=== PATIENT | female | born 1940 | race Caucasian/White ===

== ENCOUNTER 2021-05-02 00:07 | Emergency (ER) | payer OTHER ==
--- OUTSIDE RECORDS SUMMARY | 2021-05-02 00:12 | XMS REPORT | Continuity of Care Document ---
:1940 Author Organization [facility] t Address [address] [place] [address] Care Team Providers Name Role Phone Fransisco Brennan Attending Clinician Unavailable Efren Liu MD Attending Clinician 1, Lab Attending Clinician Unavailable Doctor Unassigned, Name Attending Clinician Unavailable Physician, Primary Care Admitting Clinician Unavailable Efren Liu MD Admitting Clinician Payers Payer Name Policy Type Policy Number Effective Date Expiration Date S ource Problems Condition Condition Condition Status Onset Resolution Last Treating Co mments Source Name Details Category Date Date Treatment Clinician Date Post-op Post-op Disease Active 2019-0 Univers pain pain 8-14 ity of 00:00: [address] Essential Essential Disease Active 2019 Uni vers hypertensi hypertensi 7-10 it y of on on 00:00: [address] HLD HLD Disease Active 2019-0 Univers (hyperlipi (hyperlipi 7-10 it y of demia) demia) 00:00: [address] Arthritis Arthritis Disease Active 2019-0 Uni vers of knee of knee 7-10 ity of 00:00: [address] PVC PVC Disease Active 2019-0 Univers (premature (premature 7-10 it y of ventric[place] ventric[place] 00 Medical contractio contractio Br anch n) n) Allergies, Adverse Reactions, Alerts Allergy Allergy Status Severity Reaction(s) Onset Inactive Treating Comm ents Source Name Type Date Date Clinician No Known DA Active U 2020-0 [facility]- [place] [facility] No Known DA Active U 2020-0 [facility]ie 2 [place] [facility] No Known DA Active U 2020-0 [facility] Allergie 03-20 [place] 00[facility] No Known DA Active U 2020-0 [facility] Allergie 03-20 [place] 00:[facility] Social History Social Habit Start Date Stop Date Quantity Comments Source Alcohol intake [facility] Medical Branch History [facility] o [facility] Alcohol Binge Medical Bra [facility] Sex Assigned At [facility] Medical Branch History [facility] 2018-08-29 2018-08-29 2 [place] [facility] Alcohol Frequency 00:00:00 00:00:00 Medical Branch History [facility] 2018-08-29 2018-08-29 1 [place] [facility] Alcohol Std Drinks 00:00:00 00:00:00 Medica l Branch Smoking Status Start Date Stop Date Source Never smoker [facility] Medical Branch Medications Ordered Filled Start Stop Current Ordering Indication Dosage Frequency Signature Comments Components Source Medication Medication Date Date Medication? Clinician (SIG) Name Name anastrozole 2019- No 1mg Take 1 mg Univers 1 mg tablet 10-11- by mouth ity of 17:38: 00:00 daily [place] 53 :00 Medical Branch carvedilol 2019- No 6.25mg Take 6.25 Univers 6.25 mg 10-11-21 mg by ity of tablet 17:38: 00:00 mouth 2 [place] 53 :00 (two) Medical times Branch daily with meals. pravastatin 2019- No 40mg Take 40 mg Univers 40 mg 10-11-21 by mouth ity of tablet 17:38: 00:00 at [place] 53 :00 bedtime. Medical Branch cholecalcif 2019- No 3000U Take 3,000 Univers mali, 10-11 08-21 Units by ity of vitamin D3, 17:38: 00:00 [place] (VITAMIN 53 :00 daily. Medical D3) 1,000 Branch unit tablet denosumab 2019- No 60mg inject 60 Un jamir 60 mg/mL 8-21 08-21 mg under ity of injection 17:38: 00:00 the skin [place] 53 :00 once now. Medical Indication Branch s: Once every 6 months calcium 2018- 2019- No 1{tbl} Take 1 Unive rs carbonate 10-11- tablet by ity of (CALCIUM 17:38: 00:00 mouth 2 [place] 500 ORAL) 53 :00 (two) Medical times Branch daily. docusate 2019- No 100mg Take 100 Uni vers (STOOL 10-11- mg by ity of SOFTENER) 17:38: 00:00 mouth [place] 100 mg 53 :00 daily. Medical capsule Branch multivit,tx 2019- No 1{tbl} Take 1 U nivers with 10-11- tablet by ity of iron,minera 17:38: 00:00 mouth [place] :00 daily. Medical (COMPLETE Branch MULTIVITAMI N ORAL) ascorbic 2019- No 500mg Take 500 Uni vers acid, 10-11- mg by ity of vitamin C, 17:38: 00:00 mouth [place] (VITAMIN C) 53 :00 daily. Medica l 500 mg Branch tablet omega 2019- No 1{capsu Take 1 Univer s 3-dha-epa-f 10-11- le} capsule by i ty of nida oil 17:38: 00:00 mouth [place] (FISH OIL) 53 :00 daily. Medical 100-160-1,0 Branch 00 mg Cap aspirin 81 2019- No 81mg Take 81 mg Univers mg EC 10-11- by mouth ity of tablet 17:38: 00:00 daily. [place] 53 :00 Medical Branch Cranberry 2018- 2019- No 4{capsu Take 4 Un jamir 400 mg Cap 10-11- le} capsules ity of 17:38: 00:00 by mouth 2 [place] 53 :00 (two) Medical times Branch daily. levothyroxi 2018- 2019- No 25ug Take 25 Un jamir ne 25 mcg 10-11- mcg by ity of tablet 17:38: 00:00 mouth [place] 53 :00 every Medical morning. Branch carvedilol 2019- Yes 3.125mg 3.125 mg, Univers (COREG) 8-17 Oral, BID ity of tablet 22:00: MEALS, [place] 3.125 mg 00 First dose Medic al on Sat Branch 10/07/18 at 1700, Until Discontinu ed, Routine benzocaine- 2019-0 Yes 1{lozen 1 Lozenge, Univers menthol 8-16 ge} Oral, ity of (CEPACOL 08:43: Q4HPRN, [place] SORE THROAT 22 Starting Medi jono (ALEC-MEN)) Fri Branch lozenge 1 10/06/18 at Lozenge 0343, Until Discontinu ed, Routine, Sore throat pravastatin 2019-0 Yes 40mg 40 mg, Univ ers (PRAVACHOL) 8-16 Oral, QHS, it y of tablet 40 02:00: [place] mg 00 on [place] Medical 10/05/18 at Branch 2100, Until Discontinu ed, Routine NaCl 0.9% 2018-0 2019- No 500mL at 999 [facility] ers (NS) bolus 8-15 08-15 mL/hr, 500 it y of infusion 20:00: 18:57 mL, IV [place] 500 mL 00 :00 Infusion, Medical ONCE, 1 Branch dose, [facility] 10/05/18 at 1500, STAT NaCl 0.9% 20190 2019- No 500mL at 999 Univ ers (NS) bolus 8-15 08-15 mL/hr, 500 it y of infusion 17:30: 16:27 mL, IV [place] 500 mL 00 :00 Infusion, Medical ONCE, 1 Branch dose, [facility] 10/05/18 at 1230, STAT HYDROcodone 2019-0 Yes 1{tbl} 1 tablet, Univers -acetaminop 8-15 Oral, ity of hen (NORCO) 17:25: Q4HPRN, [place] 10-325 mg 58 Starting Medica l tablet 1 [place] Branch tablet 10/05/18 at 1225, Until Discontinu ed, Routine, Pain (scale 7-10) HYDROcodone 2019-0 Yes 1{tbl} 1 tablet, Univers -acetaminop 8-15 Oral, ity of hen (NORCO 17:25: Q6HPRN, [place] 5) 5-325 mg 53 Starting Medi jono tablet 1 [place] Branch tablet 10/05/18 at 1225, Until Discontinu ed, Routine, Pain (scale 4-6) anastrozole 2019-0 Yes 1mg 1 mg, Unive rs (ARIMIDEX) 8-15 Oral, ity of tablet 1 mg 14:00: DAILY, [place] 00 First dose Medical on [facility] Branch 10/05/18 at 0900, Until Discontinu ed, Routine levothyroxi 2019-0 Yes 25ug 25 mcg, Uni vers ne 8-15 Oral, ity of (SYNTHROID) 11:00: QAM-0600, [place] tablet 25 00 First dose Medi jono mcg on [facility] Branch 10/05/18 at 0600, Until Discontinu ed, Routine docusate 2019-0 Yes 100mg 100 mg, Unive rs (COLACE) 8-15 Oral, ity of capsule 100 01:00: Q12H, [place] mg 00 First dose Medical on Tue Branch 10/04/18 at 2000, Until Discontinu ed, Routine enoxaparin 2018-0 Yes 30mg 30 mg, Unive rs (LOVENOX) 8-15 Subcutaneo ity of injection 01:00: us, Q12H, [place] 30 mg 00 First dose Medical on Tue Branch 10/04/18 at 2000, Until Discontinu ed, Routine morpHINE 30 0 2019- No Unive rs mg/30 mL 10-04 08-17 ity of (fixed 23:15: 16:05 [place] dose) 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 :01 Medical injection Branch naloxone 2018-0 Yes .4mg 0.4 mg, Univer s (NARCAN) 8-14 Slow IV ity of injection 23:05: Push, [place] 0.4 mg 59 SEE-INSTRU Medical CTIONS, Branch Starting Tue10/04/18 at 1805, Until Discontinu ed, Routine FENTanyl PF 2019-0 Yes 25ug 25 mcg, Uni vers (SUBLIMAZE 8-14 Slow IV ity of (PF)) 20:33: Push, [place] injection 46 Q5MIN PRN, Medi jono 25 mcg 4 doses, Branch Starting Tue10/04/18 at 1533, Until Discontinu ed, Routine, Pain (scale 7-10), PACU ondansetron 2018-0 Yes 4mg 4 mg, Slow Univers (ZOFRAN 8-14 IV Push, ity of (PF)) 20:33: PRN, 1 [place] injection 4 46 dose, Medical mg Starting Branch Tue10/04/18 at 1533, Until Discontinu ed, Routine, Nausea and Vomiting (N/V), PACU diphenhydrA 2019-0 Yes 25mg 25 mg, Univ ers MINE 8 Oral, ity of (BENADRYL) 20:20: Q4HPRN, [place] tablet 25 02 Starting Medica l mg [facility] Branch 10/04/18 at 1520, Until Discontinu ed, Routine, Itching HYDROcodone 2019- No 1{tbl} 1 tablet, Univers -acetaminop 10-04 Oral, ity of hen (NORCO) 20:19: 17:31 Q4HPRN, [place] 10-325 mg 29 :43 Starting Medica l tablet 1 Tue [place] tablet 10/04/18 at 1519, Until Abby 10/05/18 at 1231, Routine, Pain (scale 7-10) HYDROcodone 2018- 2019- No 1{tbl} 1 tablet, Univers -acetaminop 10-04 Oral, ity of hen (NORCO 20:19: 17:30 Q6HPRN, [place] 5) 5-325 mg 26 :56 Starting Medi jono tablet 1 Tue [place] tablet 10/04/18 at 1519, Until Abby 10/05/18 at 1230, Routine, Pain (scale 4-6) ondansetron 2018-0 Yes 4mg 4 mg, Slow Univers (ZOFRAN 10-04 IV Push, ity of (PF)) 20:19: Q6HPRN, [place] injection 4 22 Starting Medi jono mg [facility] Branch 10/04/18 at 1519, Until Discontinu ed, Routine, Nausea and Vomiting (N/V) sodium 2019-0 Yes PRN, Univers chloride -14 Starting ity of 0.9 % 16:59: Wed [place] irrigation 00 10/04/18 at Med ical solution 1159, Branch Until Discontinu ed, Intra-op sodium 2019-0 Yes PRN, Univers chloride 8-14 Starting ity of 0.9 % 16:58: Wed [place] irrigation 00 10/04/18 at Med ical solution 1158, Branch Until Discontinu ed, Intra-op gabapentin 2019-0 2019- No 300mg 300 mg, Un jamir (NEURONTIN) 10-04-14 Oral, ity of capsule 300 15:45: 15:42 ONCE, 1 [place] mg 00 :00 dose, Wed Medical 10/04/18 at Branch 1045, Routine, DSU Pre-op oxyCODONE-a 2019- No 2{tbl} 2 tablet, Univers cetaminophe 10-04 Oral, ity of n 15:45: 15:42 ONCE, 1 [place] (PERCOCET) 00 :00 dose, Tue Medi jono 5-325 mg 10/04/18 at [facility] h per tablet 1045, 2 tablet Routine, DSU Pre-op celecoxib 2019- No 400mg 400 mg, Uni vers (CELEBREX) 10-04 Oral, ity of capsule 400 15:45: 15:42 ONCE, 1 [place] mg 00 :00 dose, [facility] Medical 10/04/18 at Branch 104, Routine, DSU Pre-op
[employer] member approving Non-formul veena medication : NICK LIU
Re ason for Non-Formul veena Use: SPECIFIC INDICATION FOR NONFORMULA RY PRODUCT lactated 2019- No 1000mL at [address] [place] [address] rs ringers IV 10-04 mL/hr, ity of infusion 15:45: 15:34 1,000 mL, [place] 1,000 mL 00 :00 IV Medical Infusion, [place] ONCE, 1 dose, 10/04/18 at 104, Routine, DSU Pre-op anastrozole 2018-0 Yes 1mg Take 1 mg U nivers 1 mg tablet 8-12 by mouth ity of 17:53: daily [address] carvedilol 2018-0 Yes 6.25mg Take 6.25 Univers 6.25 mg 8-12 mg by ity of tablet 17:53: mouth 2 [place] [address] (two) Medical times [place] daily with meals. pravastatin 2019-0 Yes 40mg Take 40 mg Univers 40 mg 8-12 by mouth ity of tablet 17:53: at [place] [address] bedtime. Medical Branch cholecalcif 2019-0 Yes 3000U Take 3,000 Univers mali, 8-12 Units by ity of vitamin D3, 17:53: mouth [place] (VITAMIN 10 daily. Medical D3) 1,000 Branch unit tablet denosumab 2018-0 Yes 60mg inject 60 Uni vers 60 mg/mL 8-12 mg under ity of injection 17:53: the [place] 10 once now. Medical Indication Branch s: Once every 6 months calcium 2019-0 Yes 1{tbl} Take 1 Univer s carbonate 8-12 tablet by ity o f (CALCIUM 17:53: mouth 2 [place] 500 ORAL) 10 (two) Medical times Branch daily. docusate 2019-0 Yes 100mg Take 100 Univ ers (STOOL 8-12 mg by ity of SOFTENER) 17:53: mouth [place] 100 mg 10 daily. Medical capsule Branch multivit,tx 2019-0 Yes 1{tbl} Take 1 Un jamir with 8-12 tablet by ity of iron,minera 17:53: mouth [place] ls 10 daily. Medical (COMPLETE Branch MULTIVITAMI N ORAL) ascorbic 2018-0 Yes 500mg Take 500 Univ ers acid, 8-12 mg by ity of vitamin C, 17:53: mouth [place] (VITAMIN C) 10 daily. Medica l 500 mg Branch tablet omega 2018-0 Yes 1{capsu Take 1 Univers 3-dha-epa-f 8-12 le} capsule by it y of nida oil 17:53: mouth [place] (FISH OIL) 10 daily. Medical 100-160-1,0 Branch 00 mg Cap aspirin 81 2019-0 Yes 81mg Take 81 mg U nivers mg EC 8-12 by mouth ity of tablet 17:53: daily. [place] [address] Medical Branch Cranberry 2018-0 Yes 4{capsu Take 4 Uni vers 400 mg Cap 8-12 le} capsules ity o f 17:53: by mouth 2 [place] 10 (two) Medical times Branch daily. levothyroxi 2018-0 Yes 25ug Take 25 Uni vers ne 25 mcg 8-12 mcg by ity of tablet 17:53: mouth [place] 10 every Medical morning. Branch anastrozole 2018-0 Yes 1mg Take 1 mg U nivers 1 mg tablet 8-12 by mouth ity of 17:53: daily [place] [address] Medical Branch carvedilol 2018-0 Yes 6.25mg Take 6.25 Univers 6.25 mg 8-12 mg by ity of tablet 17:53: mouth 2 [place] 10 (two) Medical times Branch daily with meals. pravastatin 2018-0 Yes 40mg Take 40 mg Univers 40 mg 8-12 by mouth ity of tablet 17:53: at [place] 10 bedtime. Medical Branch cholecalcif 2019-0 Yes 3000U Take 3,000 Univers mali, 8-12 Units by ity of vitamin D3, 17:53: mouth [place] (VITAMIN 10 daily. Medical D3) 1,000 Branch unit tablet denosumab 2018-0 Yes 60mg inject 60 Uni vers 60 mg/mL 8-12 mg under ity of injection 17:53: the [place] 10 once now. Medical Indication Branch s: Once every 6 months calcium 2019- Yes 1{tbl} Take 1 Univer s carbonate 8-12 tablet by ity o f (CALCIUM 17:53: mouth 2 [place] 500 ORAL) 10 (two) Medical times Branch daily. docusate 20190 Yes 100mg Take 100 Univ ers (STOOL 8-12 mg by ity of SOFTENER) 17:53: mouth [place] 100 mg 10 daily. Medical capsule Branch multivit,tx Yes 1{tbl} Take 1 Un jamir with 8-12 tablet by ity of iron,minera 17:53: mouth [place] ls 10 daily. Medical (COMPLETE Branch MULTIVITAMI N ORAL) ascorbic 0 Yes 500mg Take 500 Univ ers acid, 8-12 mg by ity of vitamin C, 17:53: mouth [place] (VITAMIN C) 10 daily. Medica l 500 mg Branch tablet omega Yes 1{capsu Take 1 Univers 3-dha-epa-f 8-12 le} capsule by it y of nida oil 17:53: mouth [place] (FISH OIL) 10 daily. Medical 100-160-1,0 Branch 00 mg Cap aspirin 81 Yes 81mg Take 81 mg U nivers mg EC 8-12 by mouth ity of tablet 17:53: daily. [place] 10 Medical Branch Cranberry 0 Yes 4{capsu Take 4 Uni vers 400 mg Cap 8-12 le} capsules ity o f 17:53: by mouth 2 [place] 10 (two) Medical times Branch daily. levothyroxi 20190 Yes 25ug Take 25 Uni vers ne 25 mcg 8-12 mcg by ity of tablet 17:53: mouth [place] 10 every Medical morning. Branch Vital Signs Vital Name Observation Time Observation Value Comments Source Systolic blood 2018-10-11 12:10:00 105 mm[Hg] Univer sity of pressure [facility] Branch Diastolic blood 2018-10-11 12:10:00 62 mm[Hg] Unive rsity of pressure [place] [facility] Heart rate 2018-10-11 12:10:00 81 /min Universi ty [facility] [place] [facility] Body temperature 2018-10-11 12:10:00 36.72 Mariella [facility] ersity of [place] [facility] Respiratory rate 2018-10-11 12:10:00 18 /min Univ ersity of [place] [facility] Oxygen saturation in 2018-10-11 12:10:00 97 /min University of Arterial blood by [facility] Pulse oximetry Branch Body weight 2018-10-04 21:49:00 59.966 kg Universi ty of [place] [facility] BMI 2018-10-04 21:49:00 24.98 kg/m2 [facility]i ty [facility] [place] [facility] Body height 2018-10-04 21:49:00 154.9 cm Universi ty [facility] [place] [facility] Systolic blood 2018-10-11 12:10:00 105 mm[Hg] Univer sity of [facility] Medical Branch Diastolic blood 2018-10-11 12:10:00 62 mm[Hg] Unive rsity of pressure [place] [facility] Heart rate 2018-10-11 12:10:00 81 /min Universi ty of [place] [facility] Body temperature 2018-10-11 12:10:00 36.72 Mariella [place] [facility] ersity of [place] [facility] Respiratory rate 2018-10-11 12:10:00 18 /min [facility] ersity of [place] [facility] Oxygen saturation in 2018-10-11 12:10:00 97 /min University of Arterial blood by [facility] Pulse oximetry Branch Body weight 2018-10-04 21:49:00 59.966 kg Universi ty of [place] [facility] BMI 2018-10-04 21:49:00 24.98 kg/m2 [facility] [place] [facility] Body height 2018-10-04 21:49:00 154.9 cm [facility] [place] [facility] Procedures Procedure Date / Time Performing Clinician Source Performed BASIC METABOLIC PANEL 2018-10-08 09:17:00 [facility] (NA, K, CL, CO2, Medical Branch GLUCOSE, BUN, CREATININE, CA) CBC WITH DIFFERENTIAL 2018-10-08 09:17:00 Nick Liu [facility] BASIC METABOLIC PANEL 2018-10-07 09:50:00 Mely [facility] (NA, K, CL, CO2, Medical Branch GLUCOSE, BUN, CREATININE, CA) CBC WITH DIFFERENTIAL 2018-10-07 09:50:00 Nick Liu [facility] BASIC METABOLIC PANEL 2018-10-06 09:07:00 Luciano Boone [facility] (NA, K, CL, CO2, Medical Branch GLUCOSE, BUN, CREATININE, CA) CBC WITH DIFFERENTIAL 2018-10-06 09:07:00 Nick Liu [facility] CBC WITH DIFFERENTIAL 2018-10-05 10:11:00 Nick Liu [facility] POCT GLUCOSE 2018-10-05 02:54:00 Nick Liu [facility] (AUTOMATED) [facility] TOTAL KNEE ARTHROPLASTY 2018-10-04 17:37:00 [facility] 2018-10-03 15:36:00 Nick Liu [facility] ASSIGNMENT OF BENEFITS 2018-10-03 15:25:23 Doctor Unassigned, No [facility] ASSIGNMENT OF BENEFITS 2018-10-03 15:24:56 Doctor Unassigned, No [facility] Encounters Start End Encounter Admission Attending Care Care Encounter Source Date/Time Date/Time Type Type Clinicians Facility Department ID 2019-04-19 Inpatient DIEUDONNE Brennan, [facility] DAYS [id number] [facility] 10:18:00 Chas [id number] [place] [facility] 2019-04-09 Inpatient DIEUODNNE Brennan [facility] DAYS [id number] [facility] 10:30:00 Chas [id number] [place] [facility] 2018-10-04 2018-10-11 [facility] [id number] [facility] 10:28:00 12:30:00 Encounter Nick De Leon [id number] [place] [id number] [facility] [id number] [facility] 081 Branch 2018-10-04 2018-10-11 [facility] [id number] 10:28:00 12:30:00 Encounter Nick De Leon [id number] [place] [id number] [place] [id number] 2018-10-03 2018-10-03 [employer] 1, [facility] [id number] [facility] 10:23:53 10:38:53 Visit Nick Liu 350.1. 13.10 ity of [place] [id number] [facility] [id number] [facility] 353 Branch 2018-10-03 2018-10-03 Market B[employer] Maker 1, Adc Lab [facility] [id number] 10:23:53 10:38:53 Visit Moises [id number] [place] [id number] [place] [id number] 2018-10-03 2018-10-03 Orders Doctor LIZZETH [id number] Univers 00:00:00 00:00:00 Only Unassigned, ANDRE [id number] ity of [place] [facility] 4.2.7.2.686 [facility] [id number] [facility] 009 Branch 2018-10-03 2018-10-03 Orders Doctor LIZZETH [id number] 00:00:00 00:00:00 Only Unassigned, ANDRE [id number] [place] [facility] [id number] [id number] Results Test Description Test Time Test Comments Results Result Comments Source BASIC METABOLIC PANEL (NA, K, CL, CO2, GLUCOSE, BUN, 2018-09 11:06:00 CREATININE, CA) Test Item Value Reference Range Interpretation Comme nts NA (test code = 5788062235) 141 mmol/L 135-145 K (test code = 6693905687) 3.6 mmol/L 3.5-5 CL (test code = 2333271241) 108 mmol/L 98-108 CO2 TOTAL (test code = 9570164935) 27 mmol/L 23-31 AGAP (test code = 9797132353) 2-16 BUN (test code = 2373809103) 9 mg/dL 7-23 GLUCOSE (test code = 3595145141) 107 mg/dL 70-110 CREATININE (test code = 0.50 mg/dL 0.5-1.04 8378067274) CALCIUM (test code = 8780194067) 8.1 mg/dL 8.6-10.6 L eGFR Calculation (Non- mL/min/1.73m2 Polish) (test code = 2804084950) eGFR Calculation ( mL/min/1.73m2 Polish) (test code = 4835610287) DEB (test code = DEB) Association of Glomerular Filtration Rate (GFR) and Staging of Kidney Disease*+ + + +| GFR (mL/min/1.73 m2)?| With Kidney Damage?|?Without Kidney Damage+ +-- + +|?>90?|?Stage one?|? Normal?+ +- + +|?60-89?|?Stage two?|? Decreased GFR? + +-------- + ------+|?30-59?|?Stage three?|? Stage three? + +-------- + ------+|?15-29?|?Stage four? |? Stage four?+ +--- + +|?<15 (or dialysis)?|?Stage five? |? Stage five?+ +--- + +*Each stage assumes the associated GFR level has been in effect for at least three months.?Stages 1 to 5, with or without kidney disease, indicate chronic kidney disease.Notes: Determination of stages one and two (with eGFR >59mL/min/1.73 m2) requires estimation of kidney damage for at least three months as defined by structural or functional abnormalities of the kidney, manifested by either:Pathological abnormalities or Markers of kidney damage (including abnormalities in the composition of the blood or urine or abnormalities in imaging tests). Lab Interpretation (test code = Abnormal 96914-8) [facility] WITH [id number] 10:25:00 Test Item Value Reference Range Interpretation Comments WBC (test code = See_Comment [Automated 7349-2) message] The sy stem which generated this result transmitted reference range : 4.30 - 11.10 10*3/?L. The reference range was not used to interpret this result as normal/abnormal . RBC (test code = See_Comment L [Automated 093-8) message] The sy stem which generated this result transmitted reference range : 3.93 - 5.25 10*6/?L. The reference range was not used to interpret this result as normal/abnormal . HGB (test code = 8.4 g/dL 11.6-15 L 718-7) HCT (test code = 25.2 % 35.7-45.2 L 4544-3) MCV (test code = 96.2 fL 80.6-95.5 H 787-2) MCH (test code = 32.1 pg 25.9-32.8 785-6) MCHC (test code = 33.3 g/dL 31.6-35.1 786-4) RDW-SD (test code = 42.6 fL 39-49.9 68957-5) RDW-CV (test code = 12.4 % 12-15.5 788-0) PLT (test code = See_Comment L [Automated 777-3) message] The sy stem which generated this result transmitted reference range : 166 - 358 10*3/ ?L. The reference r luis was not used to interpret this result as normal/abnormal . MPV (test code = 13.0 fL 9.5-12.9 H 14010-3) NRBC/100 WBC (test See_Comment [Automat ed code = 7189681019) message] The system which generated this result transmitted reference range : 0.0 - 10.0 /100 WBCs. The refer ence range was not u sed to interpret th is result as normal/abnormal . NRBC x10^3 (test code <0.01 See_Comment [Auto mated = 4417087259) message] The s ystem which generated this result transmitted reference range : 10*3/?L. The reference range was not used to interpret this result as normal/abnormal . GRAN MAT (NEUT) % 58.8 % (test code = 770-8) IMM GRAN % (test code 0.10 % = 0161994566) LYMPH % (test code = 32.0 % 736-9) MONO % (test code = 6.3 % 5905-5) EOS % (test code = 2.2 % 713-8) BASO % (test code = 0.6 % 706-2) GRAN MAT x10^3(ANC) 4.05 10*3/uL 1.88-7.09 (test code = 4164147701) IMM GRAN x10^3 (test <0.03 0-0.06 code = 9803444649) LYMPH x10^3 (test code 2.20 10*3/uL 1.32-3.29 = 731-0) MONO x10^3 (test code 0.43 10*3/uL 0.33-0.92 = 742-7) EOS x10^3 (test code = 0.15 10*3/uL 0.03-0.39 711-2) BASO x10^3 (test code 0.04 10*3/uL 0.01-0.07 = 704-7) Lab Interpretation Abnormal (test code = 08125-0) [facility] METABOLIC PANEL (NA, K, CL, CO2, GLUCOSE, BUN, CREATININE, CA)2018-10-07 10:57:00 Test Item Value Reference Range Interpretation Comments NA (test code = 139 mmol/L 135-145 0897293587) K (test code = 3.6 mmol/L 3.5-5 1911863839) CL (test code = 107 mmol/L 98-108 7603959371) CO2 TOTAL (test code = 29 mmol/L 23-31 8448288762) AGAP (test code = 2-16 3906507150) BUN (test code = 7 mg/dL 7-23 8858546327) GLUCOSE (test code = 117 mg/dL 70-110 H 3870349832) CREATININE (test code = 0.56 mg/dL 0.5-1.04 1434617050) CALCIUM (test code = 8.0 mg/dL 8.6-10.6 L 3611839424) eGFR Calculation mL/min/1.73m2 (Non-) (test code = 5105892085) eGFR Calculation mL/min/1.73m2 () (test code = 9333545489) DEB (test code = DEB) Association of Glomerular Filtration Rate (GFR) and Staging of Kidney Disease*+ + + +| GFR (mL/min/1.73 m2)?| With Kidney Damage?|?Without Kidney Damage+ --------+ --------+ +|?>90??|? Stage one?|? Normal?+ ---------+ ---------+ +|?60-89? |?Stage two?|? Decreased GFR? + --+ --+ ------+|?30-59?|?Stage three?|? Stage three? + --+ --+ ------+|?15-29?|?Stage four? |? Stage four?+ -------+ -------+ +|?<15 (or dialysis)?|?Stage five? |? Stage five?+ -------+ -------+ +*Each stage assumes the associated GFR level has been in effect for at least three months.?Stages 1 to 5, with or without kidney disease, indicate chronic kidney disease.Notes: Determination of stages one and two (with eGFR >59mL/min/1.73 m2) requires estimation of kidney damage for at least three months as defined by structural or functional abnormalities of the kidney, manifested by either:Pathological abnormalities or Markers of kidney damage (including abnormalities in the composition of the blood or urine or abnormalities in imaging tests). Lab Interpretation Abnormal (test code = 91261-1) [facility] WITH [id number] 10:09:00 Test Item Value Reference Range Interpretation Comments WBC (test code = See_Comment [Automated 6690-2) message] The sy stem which generated this result transmitted reference range : 4.30 - 11.10 10*3/?L. The reference range was not used to interpret this result as normal/abnormal . RBC (test code = See_Comment L [Automated 789-8) message] The sy stem which generated this result transmitted reference range : 3.93 - 5.25 10*6/?L. The reference range was not used to interpret this result as normal/abnormal . HGB (test code = 9.3 g/dL 11.6-15 L 718-7) HCT (test code = 27.7 % 35.7-45.2 L 4544-3) MCV (test code = 96.9 fL 80.6-95.5 H 787-2) MCH (test code = 32.5 pg 25.9-32.8 785-6) MCHC (test code = 33.6 g/dL 31.6-35.1 786-4) RDW-SD (test code = 43.7 fL 39-49.9 47279-0) RDW-CV (test code = 12.3 % 12-15.5 788-0) PLT (test code = See_Comment L [Automated 777-3) message] The sy stem which generated this result transmitted reference range : 166 - 358 10*3/ ?L. The reference r luis was not used to interpret this result as normal/abnormal . MPV (test code = 12.6 fL 9.5-12.9 45170-0) NRBC/100 WBC (test See_Comment [Automat ed code = 4712590529) message] The system which generated this result transmitted reference range : 0.0 - 10.0 /100 WBCs. The refer ence range was not u sed to interpret th is result as normal/abnormal . NRBC x10^3 (test code <0.01 See_Comment [Auto mated = 9030635957) message] The s ystem which generated this result transmitted reference range : 10*3/?L. The reference range was not used to interpret this result as normal/abnormal . GRAN MAT (NEUT) % 69.6 % (test code = 770-8) IMM GRAN % (test code 0.30 % = 0922637585) LYMPH % (test code = 19.2 % 736-9) MONO % (test code = 7.5 % 5905-5) EOS % (test code = 2.8 % 713-8) BASO % (test code = 0.6 % 706-2) GRAN MAT x10^3(ANC) 5.05 10*3/uL 1.88-7.09 (test code = 2047562086) IMM GRAN x10^3 (test <0.03 0-0.06 code = 7935649328) LYMPH x10^3 (test code 1.39 10*3/uL 1.32-3.29 = 731-0) MONO x10^3 (test code 0.54 10*3/uL 0.33-0.92 = 742-7) EOS x10^3 (test code = 0.20 10*3/uL 0.03-0.39 711-2) BASO x10^3 (test code 0.04 10*3/uL 0.01-0.07 = 704-7) Lab Interpretation Abnormal (test code = 66858-5) [facility] WITH [id number] 11:11:00 Test Item Value Reference Range Interpretation Comments WBC (test code = See_Comment [Automated 6690-2) message] The sy stem which generated this result transmitted reference range : 4.30 - 11.10 10*3/?L. The reference range was not used to interpret this result as normal/abnormal . RBC (test code = See_Comment L [Automated 789-8) message] The sy stem which generated this result transmitted reference range : 3.93 - 5.25 10*6/?L. The reference range was not used to interpret this result as normal/abnormal . HGB (test code = 8.8 g/dL 11.6-15 L 718-7) HCT (test code = 26.2 % 35.7-45.2 L 4544-3) MCV (test code = 96.7 fL 80.6-95.5 H 787-2) MCH (test code = 32.5 pg 25.9-32.8 785-6) MCHC (test code = 33.6 g/dL 31.6-35.1 786-4) RDW-SD (test code = 43.4 fL 39-49.9 59021-7) RDW-CV (test code = 12.3 % 12-15.5 788-0) PLT (test code = See_Comment L [Automated 777-3) message] The sy stem which generated this result transmitted reference range : 166 - 358 10*3/ ?L. The reference r luis was not used to interpret this result as normal/abnormal . MPV (test code = 12.7 fL 9.5-12.9 87767-2) IPF % (test code = 9.6 % 1.3-7.7 H Platelet count 7931347191) measured by fluorescence method. NRBC/100 WBC (test See_Comment [Automat ed code = 4082201494) message] The system which generated this result transmitted reference range : 0.0 - 10.0 /100 WBCs. The refer ence range was not u sed to interpret th is result as normal/abnormal . NRBC x10^3 (test code <0.01 See_Comment [Auto mated = 9753642498) message] The s ystem which generated this result transmitted reference range : 10*3/?L. The reference range was not used to interpret this result as normal/abnormal . GRAN MAT (NEUT) % 76.9 % (test code = 770-8) IMM GRAN % (test code 0.40 % = 7779999063) LYMPH % (test code = 14.3 % 736-9) MONO % (test code = 6.8 % 5905-5) EOS % (test code = 1.2 % 713-8) BASO % (test code = 0.4 % 706-2) GRAN MAT x10^3(ANC) 6.19 10*3/uL 1.88-7.09 (test code = 2142197549) IMM GRAN x10^3 (test 0.03 10*3/uL 0-0.06 code = 1828399490) LYMPH x10^3 (test code 1.15 10*3/uL 1.32-3.29 L = 731-0) MONO x10^3 (test code 0.55 10*3/uL 0.33-0.92 = 742-7) EOS x10^3 (test code = 0.10 10*3/uL 0.03-0.39 711-2) BASO x10^3 (test code 0.03 10*3/uL 0.01-0.07 = 704-7) Lab Interpretation Abnormal (test code = 99598-3) [facility] METABOLIC PANEL (NA, K, CL, CO2, GLUCOSE, BUN, CREATININE, CA)2018-10-06 10:57:00 Test Item Value Reference Range Interpretation Comments NA (test code = 134 mmol/L 135-145 L 0295472988) K (test code = 3.6 mmol/L 3.5-5 4689401398) CL (test code = 104 mmol/L 98-108 4185327480) CO2 TOTAL (test code = 24 mmol/L 23-31 6107269566) AGAP (test code = 2-16 0068306706) BUN (test code = 13 mg/dL 7-23 7235263242) GLUCOSE (test code = 135 mg/dL 70-110 H 7644140705) CREATININE (test code = 0.53 mg/dL 0.5-1.04 0314582775) CALCIUM (test code = 7.1 mg/dL 8.6-10.6 L 1808732255) eGFR Calculation mL/min/1.73m2 (Non-) (test code = 9064366384) eGFR Calculation mL/min/1.73m2 () (test code = 8461791244) DEB (test code = DEB) Association of Glomerular Filtration Rate (GFR) and Staging of Kidney Disease*+ + + +| GFR (mL/min/1.73 m2)?| With Kidney Damage?|?Without Kidney Damage+ --------+ --------+ +|?>90?|?S tage one?|? Normal?+ ---------+ ---------+ +|?60-89? |?Stage two?|? Decreased GFR? + --+ --+ ------+|?30-59?|?Stage three?|? Stage three? + --+ --+ ------+|?15-29?|?Stage four? |? Stage four?+ -------+ -------+ +|?<15 (or dialysis)?|?Stage five? |? Stage five?+ -------+ -------+ +*Each stage assumes the associated GFR level has been in effect for at least three months.?Stages 1 to 5, with or without kidney disease, indicate chronic kidney disease.Notes: Determination of stages one and two (with eGFR >59mL/min/1.73 m2) requires estimation of kidney damage for at least three months as defined by structural or functional abnormalities of the kidney, manifested by either:Pathological abnormalities or Markers of kidney damage (including abnormalities in the composition of the blood or urine or abnormalities in imaging tests). Lab Interpretation Abnormal (test code = 05957-0) [facility] WITH [id number] 11:46:00 Test Item Value Reference Range Interpretation Comments WBC (test code = See_Comment H [Automated 4190-2) message] The sy stem which generated this result transmitted reference range : 4.30 - 11.10 10*3/?L. The reference range was not used to interpret this result as normal/abnormal . RBC (test code = See_Comment L [Automated 769-8) message] The sy stem which generated this result transmitted reference range : 3.93 - 5.25 10*6/?L. The reference range was not used to interpret this result as normal/abnormal . HGB (test code = 10.5 g/dL 11.6-15 L 718-7) HCT (test code = 30.2 % 35.7-45.2 L 4544-3) MCV (test code = 94.4 fL 80.6-95.5 787-2) MCH (test code = 32.8 pg 25.9-32.8 785-6) MCHC (test code = 34.8 g/dL 31.6-35.1 786-4) RDW-SD (test code = 41.2 fL 39-49.9 56259-8) RDW-CV (test code = 12.0 % 12-15.5 788-0) PLT (test code = See_Comment L [Automated 777-3) message] The sy stem which generated this result transmitted reference range : 166 - 358 10*3/ ?L. The reference r luis was not used to interpret this result as normal/abnormal . MPV (test code = 13.2 fL 9.5-12.9 H 55676-5) IPF % (test code = 15.7 % 1.3-7.7 H Platelet count 9895131346) measured by fluorescence method. NRBC/100 WBC (test See_Comment [Automat ed code = 2763969254) message] The system which generated this result transmitted reference range : 0.0 - 10.0 /100 WBCs. The refer ence range was not u sed to interpret th is result as normal/abnormal . NRBC x10^3 (test code <0.01 See_Comment [Auto mated = 2008959656) message] The s ystem which generated this result transmitted reference range : 10*3/?L. The reference range was not used to interpret this result as normal/abnormal . GRAN MAT (NEUT) % 86.3 % (test code = 770-8) IMM GRAN % (test code 0.30 % = 7042792606) LYMPH % (test code = 8.1 % 736-9) MONO % (test code = 5.2 % 5905-5) EOS % (test code = 0.0 % 713-8) BASO % (test code = 0.1 % 706-2) GRAN MAT x10^3(ANC) 10.11 10*3/uL 1.88-7.09 H (test code = 4365019795) IMM GRAN x10^3 (test 0.04 10*3/uL 0-0.06 code = 8510342422) LYMPH x10^3 (test 0.95 10*3/uL 1.32-3.29 L code = 731-0) MONO x10^3 (test code 0.61 10*3/uL 0.33-0.92 = 742-7) EOS x10^3 (test code <0.03 0.03-0.39 L = 711-2) BASO x10^3 (test code <0.03 0.01-0.07 = 704-7) Lab Interpretation Abnormal (test code = 45875-8) [facility] Test Item Value Reference Range Interpretation Comments POCT GLU (test code = 173 mg/dL 70-110 H 3467850868) DEB (test code = DEB) Notified Provider Lab Interpretation (test Abnormal code = 11251-8) [facility] WITH [id number] 15:40:00 Test Item Value Reference Range Interpretation Comments WBC (test code = See_Comment [Automated 6690-2) message] The sy stem which generated this result transmitted reference range : 4.30 - 11.10 10*3/?L. The reference range was not used to interpret this result as normal/abnormal . RBC (test code = See_Comment L [Automated 789-8) message] The sy stem which generated this result transmitted reference range : 3.93 - 5.25 10*6/?L. The reference range was not used to interpret this result as normal/abnormal . HGB (test code = 12.1 g/dL 11.6-15 718-7) HCT (test code = 36.8 % 35.7-45.2 4544-3) MCV (test code = 97.9 fL 80.6-95.5 H 787-2) MCH (test code = 32.2 pg 25.9-32.8 785-6) MCHC (test code = 32.9 g/dL 31.6-35.1 786-4) RDW-SD (test code = 43.7 fL 39-49.9 63252-1) RDW-CV (test code = 12.2 % 12-15.5 788-0) PLT (test code = See_Comment L [Automated 777-3) message] The sy stem which generated this result transmitted reference range : 166 - 358 10*3/ ?L. The reference r luis was not used to interpret this result as normal/abnormal . MPV (test code = 11.1 fL 9.5-12.9 03846-7) NRBC/100 WBC (test See_Comment [Automat ed code = 6324919151) message] The system which generated this result transmitted reference range : 0.0 - 10.0 /100 WBCs. The refer ence range was not u sed to interpret th is result as normal/abnormal . NRBC x10^3 (test code <0.01 See_Comment [Auto mated = 8432584395) message] The s ystem which generated this result transmitted reference range : 10*3/?L. The reference range was not used to interpret this result as normal/abnormal . GRAN MAT (NEUT) % 47.1 % (test code = 770-8) IMM GRAN % (test code 0.20 % = 7355910210) LYMPH % (test code = 38.9 % 736-9) MONO % (test code = 10.5 % 5905-5) EOS % (test code = 2.4 % 713-8) BASO % (test code = 0.9 % 706-2) GRAN MAT x10^3(ANC) 2.56 10*3/uL 1.88-7.09 (test code = 6751429187) IMM GRAN x10^3 (test <0.03 0-0.06 code = 1720943174) LYMPH x10^3 (test code 2.11 10*3/uL 1.32-3.29 = 731-0) MONO x10^3 (test code 0.57 10*3/uL 0.33-0.92 = 742-7) EOS x10^3 (test code = 0.13 10*3/uL 0.03-0.39 711-2) BASO x10^3 (test code 0.05 10*3/uL 0.01-0.07 = 704-7) Lab Interpretation Abnormal (test code = 70738-5) [facility]"
[2021-05-02 00:50] LABS: Absolute Lymphocytes (CBC) 2.7 K/uL (0.7-4.9); Hematocrit 37.1 % (36.0-45.0); Lymphocytes % 43.7 % (15.3-44.8); MPV 8.7 fL (7.6-11.3); RBC Red Blood Cell Count 3.94 M/uL (3.86-4.86)
[2021-05-02] MEDS ORDERED: ASPIRIN EC 81 MG TAB PO ONE (01:00)
[2021-05-02 01:06] LABS: Potassium 3.8 mmol/L (3.5-5.1); Troponin High Sensitivity 7.1 pg/mL (<58.9)
--- NOTE | 2021-05-02 01:16 | ER ---
Nurse's Notes [facility] Name: Erna Iglesias Age: 80 yrs Sex: Female : 1940 Arrival Date: 05/02/2021 Time: 00:10 Bed 4 Private MD: Diagnosis: Palpitations Presentation: 05/02 00:23 Chief complaint: EMS states: they were toned out for report of pt c/o irregular heart bb rate, pt denies chest pain. Coronavirus screen: At this time, the client does not indicate any symptoms associated with coronavirus-19. Ebola Screen: No symptoms or risks identified at this time. Initial Sepsis Screen: Does the patient meet any 2 criteria? No. Patient's initial sepsis screen is negative. Does the patient have a suspected source of infection? No. Patient's initial sepsis screen is negative. Risk Assessment: Do you want to hurt yourself or someone else? Patient reports no desire to harm self or others. Onset of symptoms was May 02, 2021. 00:23 Method Of Arrival: EMS: [facility] bb 00:23 Acuity: BERONICA 3 bb Historical: - Allergies: 00:25 No Known Allergies; bb - Home Meds: 00:25 carvedilol oral [Active]; pravastatin oral [Active]; Simvastatin Oral [Active]; bb anastrozole oral [Active]; - PMHx: 00:25 Hypertensive disorder; Breast Cancer; bb - Immunization history:: Adult Immunizations up to date, Moderna x 3. - Social history:: Smoking status: unknown. - Family history:: not pertinent. - Hospitalizations: : No recent hospitalization is reported. Screenin:03 Abuse screen: Denies threats or abuse. Nutritional screening: No deficits noted. tw5 Tuberculosis screening: No symptoms or risk factors identified. Fall Risk No fall in past 12 months (0 pts). No secondary diagnosis (0 pts). IV access (20 points). Ambulatory Aid- None/Bed Rest/Nurse Assist (0 pts). Gait- Normal/Bed Rest/Wheelchair (0 pts) Mental Status- Oriented to own ability (0 pts). Total Orosco Fall Scale indicates No Risk (0-24 pts). Assessment: 01:00 General: Appears in no apparent distress. Behavior is calm, cooperative. Pain: Denies tw5 pain. Neuro: Level of Consciousness is awake, alert, Oriented to person, place, time, situation. Cardiovascular: Denies chest pain, Capillary refill < 3 seconds Patient's skin is warm and dry. Rhythm is sinus rhythm. Respiratory: Airway is patent Breath sounds are clear bilaterally. GI: No deficits noted. : No deficits noted. Derm: No deficits noted. Musculoskeletal: No deficits noted. Vital Signs: 00:23 BP 109 / 77; Pulse 90; Resp 14 S; Temp 97.9(O); Pulse Ox 97% on R/A; Weight 56.25 kg bb (R); Height 5 ft. 1 in. (154.94 cm) (R); Pain 0/10; 01:13 BP 106 / 73; Pulse 75; Resp 15; Pulse Ox 98% on R/A; tw5 00:23 Body Mass Index 23.43 (56.25 kg, 154.94 cm) ED Course: 00:10 Patient arrived in ED. 00:12 Juventino Larsen MD is Attending Physician. rn 00:22 Cinthya Luis is Primary Nurse. tw5 00:25 Triage completed. bb 00:25 Arm band placed on Patient placed in an exam room, on a stretcher, on board design engineer, bb on pulse oximetry. 00:30 Inserted saline lock: 22 gauge in left antecubital area, using aseptic technique. tw5 00:43 XRAY Chest (1 view) In Process Unspecified. EDMS 01:03 Bed in low position. Call light in reach. Side rails up X 1. tw5 01:15 Phi Garcia MD is Referral Physician. rn 01:47 No provider procedures requiring assistance completed. IV discontinued. ke1 Administered Medications: 01:00 Drug: Aspirin Chewable Tablet 324 mg Route: PO; tw5 01:48 Follow up: Response: No adverse reaction ke1 Outcome: 01:15 Discharge ordered by . rn 01:50 Discharged to home ambulatory. ke1 01:50 Condition: good 01:50 Discharge instructions given to patient. 01:51 Patient left the ED. ke1 Signatures: Dispatcher [employer] EDGA Latasha Dean RN RN Juventino Larsen MD MD rn Marsh, Wendy Cinthya Luis tw5 Collins Lopez RN RN ke1
--- NOTE | 2021-05-02 01:16 | EDPHYS ---
Physician Documentation [facility] Name: Erna Iglesias Age: 80 yrs Sex: Female : 1940 Arrival Date: 05/02/2021 Time: 00:10 Bed 4 Private MD: ED Physician Juventino Larsen HPI: 05/02 00:48 This 80 yrs old Female presents to ER via EMS with complaints of General Weakness. rn 00:48 The patient presents with a history of irregular heart beat, heart racing. Context: The rn symptoms occur at rest. Onset: The symptoms/episode began/occurred today. Duration: The patient or guardian reports a single episode. Modifying factors: The symptoms are aggravated by nothing. The symptoms are alleviated by nothing. Severity of symptoms: At their worst the symptoms were mild in the emergency department the symptoms have improved. The patient has not experienced similar symptoms in the past. The patient has not recently seen a physician. Pt reports approx 2-3 hours and feeling "irregular heart beats", no chest pain/sob/syncope. Denies hx of arrhythmia in past. No fever or recent illness. No meds given by EMS per report, and patient states now feels much better from about 5 min prior to arrival. Denies vomiting/diarrhea. . Historical: - Allergies: 00:25 No Known Allergies; bb - Home Meds: 00:25 carvedilol oral [Active]; pravastatin oral [Active]; Simvastatin Oral [Active]; bb anastrozole oral [Active]; - PMHx: 00:25 Hypertensive disorder; Breast Cancer; bb - Immunization history:: Adult Immunizations up to date, Moderna x 3. - Social history:: Smoking status: unknown. - Family history:: not pertinent. - Hospitalizations: : No recent hospitalization is reported. ROS: 00:48 Constitutional: Negative for fever, chills, and weight loss, Eyes: Negative for injury, rn pain, redness, and discharge, Neck: Negative for injury, pain, and swelling, Cardiovascular: Negative for chest pain, + for palpitations (now resolved). Respiratory: Negative for shortness of breath, cough, wheezing, and pleuritic chest pain, Abdomen/GI: Negative for abdominal pain, nausea, vomiting, diarrhea, and constipation, Back: Negative for injury and pain, : Negative for injury, bleeding, discharge, and swelling, MS/Extremity: Negative for injury and deformity, Skin: Negative for injury, rash, and discoloration, Neuro: Negative for headache, numbness, tingling, and seizure. 00:48 All other systems are negative. Exam: 00:48 Constitutional: This is a well developed, well nourished patient who is awake, alert, rn and in no acute distress. Head/Face: Normocephalic, atraumatic. Eyes: Periorbital areas with no swelling, redness, or edema. Cardiovascular: Regular rate and rhythm. No pulse deficits. Respiratory: No increased work of breathing, no retractions or nasal flaring. Abdomen/GI: Soft, non-tender Skin: Warm, dry MS/ Extremity: Pulses equal, no cyanosis. Neurovascular intact. Full, normal range of motion. Equal circumference. Neuro: Awake and alert, GCS 15 00:52 ECG was reviewed by the Attending Physician. rn Vital Signs: 00:23 BP 109 / 77; Pulse 90; Resp 14 S; Temp 97.9(O); Pulse Ox 97% on R/A; Weight 56.25 kg bb (R); Height 5 ft. 1 in. (154.94 cm) (R); Pain 0/10; 01:13 BP 106 / 73; Pulse 75; Resp 15; Pulse Ox 98% on R/A; tw5 00:23 Body Mass Index 23.43 (56.25 kg, 154.94 cm) bb MDM: 00:12 Patient medically screened. rn 01:13 Differential diagnosis: arrythmia, dehydration, stress disorder, atrial fibrillation. rn Data reviewed: vital signs, nurses notes, lab test result(s), EKG, radiologic studies, plain films, and as a result, I will discharge patient. Data interpreted: bus monitor: rate is 76 beats/min, rhythm is normal sinus rhythm, regular, with no ectopy, Interpretation: normal rate, normal rhythm, Pulse oximetry: on room air is 97 %. Interpretation: normal. Counseling: I had a detailed discussion with the patient and/or guardian regarding: the historical points, exam findings, and any diagnostic results supporting the discharge/admit diagnosis, lab results, radiology results, the need for outpatient follow up, to return to the emergency department if symptoms worsen or persist or if there are any questions or concerns that arise at home. Response to treatment: the patient's symptoms have resolved after treatment, the patient's condition has returned to base line, the patient is now symptom free, and as a result, I will discharge patient. Special discussion: I discussed with the patient/guardian in detail that at this point there is no indication for admission to the hospital. It is understood, however, that if the symptoms persist or worsen the patient needs to return immediately for re-evaluation. Based on the history and exam findings, there is no indication for further emergent testing or inpatient evaluation. I discussed with the patient/guardian the need to see the waistline joiner lockstitch for further evaluation of the symptoms. ED course: Pt has been in sinus rhythm entire time here, no ectopy, no acute findings in bloodwork. Most likely has paroxysmal afib, already on coreg, recommend baby aspirin daily and cardiology f/u as likely to happen again. Return precautions given and understood. . 05/02 00:19 Order name: Basic Metabolic Panel; Complete Time: 01:07 rn 05/02 00:19 Order name: CBC with Diff; Complete Time: 01:02 rn 05/02 00:19 Order name: NT PRO-BNP; Complete Time: 01:07 rn 05/02 00:19 Order name: Troponin HS; Complete Time: 01:07 rn 05/02 00:19 Order name: XRAY Chest (1 view) rn 05/02 00:19 Order name: EKG; Complete Time: 00:20 rn 05/02 00:19 Order name: Cardiac monitoring; Complete Time: 00:42 rn 05/02 00:19 Order name: EKG - Nurse/Tech; Complete Time: 00:55 rn 05/02 00:19 Order name: IV Saline Lock; Complete Time: 00:59 rn 05/02 00:19 Order name: Labs collected and sent; Complete Time: 00:59 rn 05/02 00:19 Order name: O2 Per Protocol; Complete Time: 00:59 rn 05/02 00:19 Order name: O2 Sat Monitoring; Complete Time: 00:59 rn EC:52 Rate is 74 beats/min. Rhythm is regular. QRS Independence is Normal. IL interval is normal. QRS rn interval is normal. QT interval is normal. No Q waves. T waves are Normal. No ST changes noted. Clinical impression: NSR w/ Non-specific ST/T Changes. Reviewed by me. Administered Medications: 01:00 Drug: Aspirin Chewable Tablet 324 mg Route: PO; tw5 01:48 Follow up: Response: No adverse reaction ke1 Disposition Summary: 05/02/21 01:15 Discharge Ordered Location: Home rn Problem: new rn Symptoms: are resolved rn Condition: Stable rn Diagnosis - Palpitations rn Followup: rn - With: Phi Garcia MD - When: 2 - 3 days - Reason: Recheck today's complaints, Re-evaluation by your physician Discharge Instructions: - Discharge Summary Sheet rn - Atrial Fibrillation rn - Palpitations rn Forms: - Medication Reconciliation Form rn - Thank You Letter rn - Antibiotic project management intern - Prescription Opioid Use rn Signatures: Dispatcher [employer] Latasha Moeller RN Juventino Terrell MD MD rn Wood, Tiffany tw5 Collins Lopez RN ke1
[2021-05-02 02:40] VITALS: TEMP 97.9
[2021-05-02 02:41] VITALS: BP 106/73; O2SAT 98
--- NOTE | 2021-05-02 21:25 | RAD REPORT ---
EXAM DESCRIPTION: XR Chest, 1 View CLINICAL HISTORY: PALPITATIONS TECHNIQUE: Frontal view of the chest. COMPARISON: No relevant prior studies available. FINDINGS: Lungs: Unremarkable. No consolidation. Pleural space: Unremarkable. No pneumothorax. Heart: Unremarkable. No cardiomegaly. Mediastinum: Unremarkable. Bones/joints: Unremarkable. Soft tissues: Surgical clips project over the right axilla. IMPRESSION: No acute disease. Electronically signed by: Lyle Moses MD 05/02/2021 12:55 AM [employer] MEAT PRESSER Due to temporary technical issues with the PACS/Fluency reporting system, reports are being signed by the in house radiologists without review as a courtesy to insure prompt reporting. The interpreting radiologist is fully responsible for the content of the report.
--- NOTE | 2021-05-03 10:12 | EKG ---
Test Date: 2021-05-02 Test Time: 00:53:47 [employer]: AIDEN MEASUREMENT RESULTS: Intervals: Rate: 74 IN: 168 QRSD: 70 QT: 382 QTc: 424 [place]: P: 34 IN: 168 QRS: 26 T: 45 INTERPRETIVE STATEMENTS: Normal sinus rhythm Low voltage QRS Borderline ECG Compared to ECG 06/30/2015 17:09:42 No significant changes Electronically Signed On 05-03-21 10:11:36 CDT by Phi Garcia
== END 2021-05-02 01:51 | disposition home or self-care (01) ==
LOC: ER 00:07
DX: R00.2 Palpitations (principal); R53.1 Weakness; I10 Essential (primary) hypertension; Z85.3 Personal history of malignant neoplasm of breast
CPT/HCPCS: 36415; 71045; 80048; 83880; 84484; 85025; 93005; 99284